=== PATIENT | female | born 1990 | race Two or more races ===

== ENCOUNTER 2018-10-09 20:30 | Emergency (ER) | payer MEDICAID ==
[~2018-10-09] VITALS: Ht 152.4 cm; Wt 59.0 kg
[2018-10-09 20:35] VITALS: BP 158/111
[2018-10-10] MEDS ORDERED: methylPREDNISolone SOD SUCC 125 MG/2 ML VL IV ONE (00:45)
[2018-10-10] MEDS ORDERED: KETOROLAC TROMETH 30 MG/ML 1ML VIAL IV ONE (00:45)
== END 2018-10-10 01:10 | disposition home or self-care (01) ==
LOC: EDBD 20:30 → ER 20:37
DX: S02.2XXA Fracture of nasal bones, initial encounter for closed fracture (principal); Y08.89XA Assault by other specified means, initial encounter; Y93.89 Activity, other specified; Y99.8 Other external cause status; Y92.89 Other specified places as the place of occurrence of the external cause
CPT/HCPCS: 70450; 70486; 72125; 96374; 96375; 99284; J1885; J2930

== ENCOUNTER 2021-03-28 14:12 | Emergency (ER) | payer MEDICAID ==
[~2021-03-28] VITALS: Ht 152.4 cm; Wt 61.2 kg
[2021-03-28] MEDS ORDERED: ACETAMINOPHEN 500 MG TAB PO ONE (15:45)
[2021-03-28] MEDS ORDERED: cefTRIAXone SOD 1,000 MG VL IM ONE (15:45)
[2021-03-28 17:22] VITALS: BP 114/68
== END 2021-03-28 17:53 | disposition home or self-care (01) ==
LOC: ER 14:12
DX: J03.90 Acute tonsillitis, unspecified (principal); Z20.822 Contact with and (suspected) exposure to COVID-19
CPT/HCPCS: 36415; 71045; 87070; 87426; 87880; 96372; 99284; J0696